=== PATIENT | male | born 1945 | race Caucasian/White ===

== ENCOUNTER 2019-03-31 10:28 | Outpatient (CLI) | payer MEDICARE, SELFPAY ==
--- NOTE | 2019-03-31 08:30 | ECG_ITS ---
Measurements Intervals [place] Rate: 55 P: 66 DC: 169 QRS: -55 QRSD: 161 T: -30 QT: 493 QTc: 472 Interpretive Statements SINUS BRADYCARDIA WITH SINUS ARRHYTHMIA LEFT AXIS DEVIATION RIGHT BUNDLE BRANCH BLOCK T WAVE ABNORMALITY IN ANTERIOR LEADS- CONSIDER ISCHEMIA BASELINE WANDER- I, III, V3 ABNORMAL ECG Electronically Signed On 03-31-2019 9:12:31 REVIEW ENGINEER by Sanford Jameson D.O.
--- NOTE | 2019-03-31 09:06 | SUR.PREOP ---
0900-pt presents to the [facility] for a CV. No distress noted. AOx4. EKG performed and found to be in NSR. MD informed and shown EKG. Procedure cancelled. Will continue to monitor.
== END 2019-03-31 10:29 | disposition home or self-care (01) ==
PROVIDERS: Visit Provider Specialist
PROC: 5A2204Z Restoration of Cardiac Rhythm, Single (ICD-10-PCS; principal; 2019-03-31 10:00)
DX: I48.91 Unspecified atrial fibrillation (principal); Z53.8 Procedure and treatment not carried out for other reasons
CPT/HCPCS: 93005; 99211; G0463; J7040